=== PATIENT | male | born 1995 | race Caucasian/White ===

== ENCOUNTER 2016-08-21 07:47 | Observation (INO) | payer MEDICAID, OTHER ==
[~2016-08-21] VITALS: Ht 160 cm; Wt 57.9 kg
[2016-08-21 07:51] VITALS: BP 145/85; PULSE 69; RESP 20; TEMP 97.3
--- NOTE | 2016-08-21 08:12 | PD ---
HPI Chief Complaint: Abdominal Pain Time Seen by Provider: 08:12 Travel History International Travel<30 days: No Contact w/Intl Traveler<30days: No Traveled to known affect area: No History of Present Illness HPI 20-year-old male came to the emergency room brought by his mother with history of severe abdominal pain which initially pointed to the left lower quadrant and suprapubic. As this has been going on for past 2 days. His last meal was at 8 PM. He is not hungry right now. He is otherwise a healthy child. Vital signs were stable. Patient looked very uncomfortable. PFSH Past Medical History Narrative Medical List of his past medical history as reviewed from the nursing note. Medical History: Denies Significant Hx Immunizations Current: Yes Influenza Vaccination: No Past Surgical History Other Surgery: Yes (finger sx) Social History Alcohol Use: No Tobacco Use: No Substance Use: No Allergies-Medications (Allergen,Severity, Reaction): Coded Allergies: No Known Allergies (Unverified , 08/21/16) Comments No known drug allergies. Reported Meds & Prescriptions Reported Meds & Active Scripts Active [place] (Hydrocodone-Acetaminophen) 5-325 mg Tab 1 Tab PO Q6H PRN Narrative Medication List of his home medications reviewed from the nursing note. Review of Systems Except as stated in HPI: all other systems reviewed are Neg Physical Exam Narrative GENERAL: Awake, alert, anxious, significant distress SKIN: Warm and dry. HEAD: Atraumatic. Normocephalic. EYES: Pupils equal and round. No scleral icterus. No injection or drainage. ENT: No nasal bleeding or discharge. Mucous membranes pink and moist. NECK: Trachea midline. No JVD. CARDIOVASCULAR: Regular rate and rhythm. No murmur appreciated. RESPIRATORY: No accessory muscle use. Clear to auscultation. Breath sounds equal bilaterally. GASTROINTESTINAL: Significant pain, guarding and rebound at the McBurney's point , decreased bowel sounds. Hepatic and splenic margins not palpable. MUSCULOSKELETAL: No obvious deformities. No clubbing. No cyanosis. No edema. NEUROLOGICAL: Awake and alert. No obvious cranial nerve deficits. Motor grossly within normal limits. Normal speech. PSYCHIATRIC: Appropriate mood and affect; insight and judgment normal. Data Data Last Documented VS Vital Signs Date Time Temp Pulse Resp B/P Pulse Ox O2 Delivery O2 Flow Rate FiO2 08/21/16 09:31 16 08/21/16 08:58 75 142/87 99 Room Air 08/21/16 07:51 97.3 Orders Complete Blood Count With Diff (08/21/16 08:15) Comprehensive Metabolic Panel (08/21/16 08:15) Urinalysis - C+S If Indicated (08/21/16 08:15) Ct Abd/Pel W Iv Contrast(Rout) (08/21/16 08:15) Iv Access Insert/Monitor (08/21/16 08:15) Ecg Monitoring (08/21/16 08:15) Oximetry (08/21/16 08:15) Morphine Inj (Morphine Inj) (08/21/16 08:15) Ondansetron Inj (Zofran Inj) (08/21/16 08:15) Sodium Chlor 0.9% 1000 Ml Inj (Ns 1000 M (08/21/16 08:15) Sodium Chloride 0.9% Flush (Ns Flush) (08/21/16 08:15) Diatrizoate Liq ( Gastroview Liq) (08/21/16 08:19) Oral Contrast - Adult (08/21/16 08:43) Morphine Inj (Morphine Inj) (08/21/16 09:30) Iohexol 350 Inj (Omnipaque 350 Inj) (08/21/16 09:46) Piperacil-Tazo 3.375 Gm Premix (Zosyn 3. (08/21/16 10:30) Labs Laboratory Tests Test 08/21/16 08/21/16 08:20 09:20 White Blood Count 16.4 TH/MM3 Red Blood Count 5.00 MIL/MM3 Hemoglobin 14.9 GM/DL Hematocrit 42.6 % Mean Corpuscular Volume 85.3 FL Mean Corpuscular Hemoglobin 29.8 PG Mean Corpuscular Hemoglobin 34.9 % Concent Red Cell Distribution Width 12.7 % Platelet Count 250 TH/MM3 Mean Platelet Volume 9.1 FL Neutrophils (%) (Auto) 77.8 % Lymphocytes (%) (Auto) 14.0 % Monocytes (%) (Auto) 7.1 % Eosinophils (%) (Auto) 1.0 % Basophils (%) (Auto) 0.1 % Neutrophils # (Auto) 12.8 TH/MM3 Lymphocytes # (Auto) 2.3 TH/MM3 Monocytes # (Auto) 1.2 TH/MM3 Eosinophils # (Auto) 0.2 TH/MM3 Basophils # (Auto) 0.0 TH/MM3 CBC Comment DIFF FINAL Differential Comment Sodium Level 141 MEQ/L Potassium Level 3.7 MEQ/L Chloride Level 104 MEQ/L Carbon Dioxide Level 28.7 MEQ/L Anion Gap 8 MEQ/L Blood Urea Nitrogen 19 MG/DL Creatinine 1.00 MG/DL Estimat Glomerular Filtration 96 ML/MIN Rate Random Glucose 97 MG/DL Calcium Level 9.2 MG/DL Total Bilirubin 0.4 MG/DL Aspartate Amino Transf 15 U/L (AST/SGOT) Alanine Aminotransferase 16 U/L (ALT/SGPT) Alkaline Phosphatase 77 U/L Total Protein 7.9 GM/DL Albumin 4.5 GM/DL Urine Color LIGHT-YELLOW Urine Turbidity CLEAR Urine pH 6.5 Urine Specific [place] 1.017 Urine Protein NEG mg/dL Urine Glucose (UA) NEG mg/dL Urine Ketones NEG mg/dL Urine Occult Blood NEG Urine Nitrite NEG Urine Bilirubin NEG Urine Urobilinogen LESS THAN 2.0 MG/DL Urine Leukocyte Esterase NEG Urine RBC LESS THAN 1 /hpf Urine WBC LESS THAN 1 /hpf Microscopic Urinalysis Comment CULT NOT INDICATED MDM Medical Decision Making Medical Screen Exam Complete: Yes Emergency Medical Condition: Yes Medical Record Reviewed: Yes Differential Diagnosis Acute appendicitis, acute diverticulitis or mesenteric adenitis Narrative Course 10:50 AM blood test results were suggestive of leukocytosis. CAT scan shows appendicolith with no surrounding stranding. However clinically he is highly suspicious of acute appendicitis and I spoke with the general surgeon Dr. Catalan and let him know about my clinical opinion. He agrees and patient will be going to the ER as per him. He wanted the patient to be admitted to his service and he is coming down to see the patient shortly. Patient was given adequate pain management, IV fluid and has been kept nothing by mouth. Procedures EKG Prior to Arrival: No Physician Communication Physician Communication Dr. Catalan Diagnosis Primary Impression: Acute appendicitis Qualified Code: K35.80 - Acute appendicitis, unspecified acute appendicitis type Additional Impressions: Appendicolith Leukocytosis Qualified Code: D72.829 - Leukocytosis, unspecified type Admitting Information Admitting Physician Requests: Admit Scripts Hydrocodone-Acetaminophen ([place])5-325 mg Tab1 Tab PO Q6H PRN (PAIN) #28 TAB Ref 0 Prov:Pj Catalan MD 08/21/16 Roshan Leon MD Aug 21, 2016 08:12 Roshan Leon MD Aug 21, 2016 08:12
[2016-08-21] MEDS ORDERED: SODIUM CHLOR 0.9% 1000 ML INJ 1,000 ML IV SCH (08:15)
[2016-08-21] MEDS ORDERED: MORPHINE SULFATE 4 MG/ML INJ IV PUSH ONE ×3 (08:15→10:45)
[2016-08-21] MEDS ORDERED: ONDANSETRON HCL 4 MG/2 ML VIAL IVP ONE (08:15)
[2016-08-21] MEDS ORDERED: DIATRIZOATE MEGLUM/DIATRIZOATE SOD 9 ML CUP ONE (08:19)
[2016-08-21] MEDS: SODIUM CHLORIDE 0.9% FLUSH 5 ML FLUSH IVF PRN ×2 (08:24→09:22)
[2016-08-21 08:43] LABS: AUTOMATED NEUTROPHIL # 12.8 TH/MM3 (1.8-7.7); BASOPHIL % 0.1 % (0.0-2.0); EOSINOPHIL # 0.2 TH/MM3 (0-0.4); HEMATOCRIT 42.6 % (39.0-51.0); HEMO FLAGS DIFF FINAL; LYMPHOCYTE # 2.3 TH/MM3 (1.0-4.8); MEAN CELL VOLUME 85.3 FL (80.0-100.0); MEAN CORPUSCULAR HEMOGLOBIN 29.8 PG (27.0-34.0); MEAN CORPUSCULAR HGB CONC 34.9 % (32.0-36.0); MONO % 7.1 % (0.0-8.0); NEUT % 77.8 % (16.0-70.0); PLATELET COUNT 250 TH/MM3 (150-450); RED CELL DISTRIBUTION WIDTH 12.7 % (11.6-17.2); WHITE BLOOD COUNT 16.4 TH/MM3 (4.0-11.0)
[2016-08-21 08:53] LABS: ALT (GPT) 16 U/L (9-52); ANION GAP 8 MEQ/L (5-15); AST (GOT) 15 U/L (15-39); BICARBONATE 28.7 MEQ/L (21.0-32.0); BLOOD UREA NITROGEN 19 MG/DL (7-18); CHLORIDE 104 MEQ/L (98-107); GLOMERULAR FILTRATION RATE 96 ML/MIN (>89); POTASSIUM 3.7 MEQ/L (3.5-5.1); SODIUM (NA) 141 MEQ/L (136-145)
[2016-08-21 08:56] LABS: ALKALINE PHOSPHATASE 77 U/L (45-117); TOTAL BILIRUBIN ADULT 0.4 MG/DL (0.2-1.0)
[2016-08-21 08:58] VITALS: BP 142/87; PULSE 75; RESP 17; O2SAT 99
[2016-08-21 09:44] LABS: BLOOD, URINE NEG (NEG); GLUCOSE,URINE NEG (NEG); KETONE, URINE NEG (NEG); NITRITE,URINE NEG (NEG); PH, URINE 6.5 (5.0-8.5); URINE COLOR LIGHT-YELLOW (YELLW/STRAW)
[2016-08-21] MEDS ORDERED: IOHEXOL 350 MG/ML 10 ML VIAL (for RAD DIAG) IV ONE (09:46)
[2016-08-21 09:48] LABS: COMMENT (UR) CULT NOT INDICATED; CULTURE IF INDICATED CULT NOT INDICATED
--- NOTE | 2016-08-21 10:18 | RADRPT ---
EXAM DATE/TIME: 08/21/2016 09:42 [facility] COMPARISON: No previous studies available for comparison. INDICATIONS : Left upper quadrant pain for two days. IV CONTRAST: 64 cc Omnipaque 350 (iohexol) IV ORAL CONTRAST: Prescribed oral contrast ingested. RADIATION DOSE: 4.53 CTDIvol (mGy) MEDICAL HISTORY : None SURGICAL HISTORY : None. ENCOUNTER: Initial ACUITY: 1 day PAIN SCALE: 5/10 LOCATION: Left upper quadrant TECHNIQUE: Volumetric scanning of the abdomen and pelvis was performed. Using automated exposure control and ad justment of the mA and/or kV according to patient size, radiation dose was kept as low as reasonably achievable to obtain optimal diagnostic quality images. FINDINGS: LOWER LUNGS: The visualized lower lungs are clear. LIVER: Homogeneous density without lesion. There is no dilation of the biliary tree. No calcified gallston es. SPLEEN: Normal size without lesion. PANCREAS: Within normal limits. KIDNEYS: Normal in size and shape. There is no mass, stone or hydronephrosis. ADRENAL GLANDS: Within normal limits. VASCULAR: There is no aortic aneurysm. BOWEL/MESENTERY: The stomach, small bowel, and colon demonstrate no acute abnormality. There is no free intraperitone al air or fluid. There does appear to be a calcified appendicolith in the right lower quadrant. Howev er, no surrounding inflammatory changes are seen. ABDOMINAL WALL: Within normal limits. RETROPERITONEUM: There is no lymphadenopathy. BLADDER: No wall thickening or mass. REPRODUCTIVE: Within normal limits. INGUINAL: There is no lymphadenopathy or hernia. MUSCULOSKELETAL: Within normal limits for patient age. CONCLUSION: 1. Calcified appendicolith without surrounding inflammation. 2. Otherwise, unremarkable CT scan of the abdomen and pelvis. Kem Pringle MD on August 21, 2016 at 10:13 Board Certified Radiologist. This report was verified electronically.
[2016-08-21] MEDS ORDERED: PIPERACIL-TAZO 3.375 GM PREMIX 50 ML IV ONE (10:30)
[2016-08-21 10:37] VITALS: BP 142/84; PULSE 77; RESP 16; O2SAT 100
[2016-08-21] MEDS ORDERED: SODIUM CHLORIDE 0.9% FLUSH 5 ML FLUSH IV FLUSH PRN (10:45)
[2016-08-21] MEDS ORDERED: SODIUM CHLOR 0.9% 1000 ML INJ 1,000 ML IV ONE ×2 (10:45→13:50)
[2016-08-21] MEDS: metroNIDAZOLE 500 MG INJ 100 ML IV SCH ×2 (11:07→18:36)
[2016-08-21 12:30] VITALS: BP 146/102; PULSE 89; RESP 18; TEMP 97.4; O2SAT 98
[2016-08-21] MEDS ORDERED: HYDROmorphone HCL PF 1 MG/ML VIAL IV PUSH PRN (12:30)
[2016-08-21] MEDS ORDERED: ONDANSETRON HCL 4 MG/2 ML VIAL IV PUSH ONE ×2 (13:00→13:50)
[2016-08-21] MEDS ORDERED: PROPOFOL 200 MG/20 ML AMP IV ONE (13:50)
[2016-08-21] MEDS ORDERED: NEOSTIGMINE 3 MG/3 ML SYR IV ONE (13:50)
[2016-08-21] MEDS ORDERED: ACETAMINOPHEN 1000 MG/100 ML VIAL IV ONE ×2 (14:29→14:39)
[2016-08-21] MEDS ORDERED: MIDAZOLAM HCL 2 MG/2 ML VIAL ONE (14:39)
[2016-08-21] MEDS ORDERED: DICLOFENAC SODIUM 37.5 MG/ML VIAL IV PUSH ONE (14:39)
[2016-08-21] MEDS ORDERED: DEXAMETHASONE SOD PHOS 4 MG/ML VIAL ONE (14:39)
[2016-08-21] MEDS ORDERED: fentaNYL CITRATE 250 MCG/5 ML AMP ONE (14:39)
[2016-08-21] MEDS ORDERED: FAMOTIDINE 20 MG/2 ML VIAL ONE (14:40)
[2016-08-21] MEDS ORDERED: BUPIVACAINE/EPINEPHRINE 0.25% PF 30 ML VIAL ONE (15:31)
[2016-08-21 16:00] VITALS: BP 104/74; PULSE 80; RESP 16; TEMP 97.2; O2SAT 96
[2016-08-21] MEDS ORDERED: NORC5TAB PO (16:01)
[2016-08-21] MEDS ORDERED: DO NOT ADM ANY ANTICOAGULANT DRUGS XX PRN (16:30)
[2016-08-21] MEDS: SODIUM CHLOR 0.9% 1000 ML INJ 1,000 ML IV SCH ×2 (16:30→20:38)
[2016-08-21] MEDS ORDERED: ceFAZolin 2 GM PREMIX 50 ML IV SCH (17:00)
[2016-08-21] MEDS: ACETAMINOPHEN/HYDROcodone 325 MG/5 MG TAB PO PRN (18:30)
[2016-08-21 20:00] VITALS: BP 102/56; PULSE 72; RESP 16; TEMP 97.9; O2SAT 97
[2016-08-21] MEDS ORDERED: BENZOCAINE-MENTHOL (SUGAR FREE) 15 MG-3.6 MG LOZENGE BUCCAL PRN (20:30)
[2016-08-21] MEDS: SODIUM CHLORIDE 0.9% FLUSH 5 ML FLUSH IV FLUSH SCH (20:42)
[2016-08-22] VITALS: BP 108/54; PULSE 68; RESP 16; TEMP 97.4; O2SAT 95
[2016-08-22] MEDS: SODIUM CHLOR 0.9% 1000 ML INJ 1,000 ML IV SCH (02:31)
[2016-08-22] MEDS: metroNIDAZOLE 500 MG INJ 100 ML IV SCH (02:33)
[2016-08-22 04:00] VITALS: BP 105/50; PULSE 60; RESP 18; TEMP 97.5; O2SAT 98
[2016-08-22] MEDS: ACETAMINOPHEN/HYDROcodone 325 MG/5 MG TAB PO PRN ×2 (04:24→08:59)
--- NOTE | 2016-08-22 05:50 | MH ---
cc: BRANDIE CATALAN DATE OF ADMISSION: 08/21/2016 REASON FOR ADMISSION Acute abdominal pain. HISTORY A 20-year-old gentleman who began having pain in the umbilical area, radiating down to his right lower quadrant. It had been going on for a couple of days. She is very tender. He was seen in the emergency room where the ER physician felt clinically he had appendicitis. CT scan was done which did not show too much but a fecalith. His white count was 17,000. Call was placed to me for surgical evaluation and treatment of this patient. PAST MEDICAL HISTORY Negative for any chronic medical problems. SOCIAL HISTORY He does not use alcohol. REVIEW OF SYSTEMS No cardiac or pulmonary issues. His main complaint is abdominal pain, unrelenting, cannot get comfortable. PHYSICAL EXAMINATION GENERAL: He is awake, alert, in significant distress. He points to his right lower quadrant. He cannot move. He is lying in the position. HEAD: Atraumatic. EYES: Pupils equal, round. NECK: Supple. CHEST: Clear. HEART: Regular rate. ABDOMEN: Thin, soft, exquisite tenderness in the right lower quadrant at McBurney point. No surgical scars. No umbilical hernia. No inguinal hernia. EXTREMITIES: He moves all extremities. No clubbing, cyanosis or edema. NEUROLOGIC: He is alert and oriented. LABORATORY DATA White count of 16, H&H 14 and 42. Chemistry: Essentially normal with LFTs. Urinalysis clear. IMAGING STUDIES A fecalith in the appendix. ASSESSMENT A 20-year-old gentleman who has exquisite tenderness in the right lower quadrant. Clinically he has acute appendicitis. White count is elevated. His CT scan is not too revealing but clinically he has appendicitis. PLAN We will plan operative intervention. This was discussed with the patient and his family and they appeared to understand. Brandie Catalan MD JDB/ANGELIQUE /10:51 PM /5:45 AM
[2016-08-22 08:00] VITALS: BP 114/58; PULSE 60; RESP 18; O2SAT 98
[2016-08-22] MEDS: SODIUM CHLORIDE 0.9% FLUSH 5 ML FLUSH IV FLUSH SCH (09:00)
[2016-08-22] MEDS ORDERED: PANTOPRAZOLE SODIUM 40 MG VIAL IV SCH (09:00)
--- NOTE | 2016-08-25 09:25 | MP ---
cc: BRANDIE CATALAN DATE OF SURGERY: 08/21/2016 PREOPERATIVE DIAGNOSIS Acute appendicitis. POSTOPERATIVE DIAGNOSIS Acute appendicitis. PROCEDURE Laparoscopic appendectomy. ANESTHESIA General SURGEON Dr. Catalan. INDICATIONS FOR PROCEDURE: The patient is a pleasant 20-year-old gentleman who was found clinically to have appendicitis. Plans were made for above. PROCEDURE Placed in supine position after anesthesia his abdomen is prepped with Betadine. He is given preoperative antibiotics. Time-out was done. We make an incision above the umbilicus. Veress needle inserted, saline load test was performed, a 10 mm trocar was introduced. Cameras introduced, two other working ports placed 5 mm in the midline, one able the pubic tubercle, one in between to previously placed ports. Cameras introduced. We can see the appendix is obviously inflamed somewhat retrocecal the appendix then grasped identifying the mesentery, the gallbladder mesentery artery of the appendix is taken down, all done with harmonic scalpel until we get to the base of the appendix. Two endoties, PDS were then placed around the base of the appendix and the base of the appendix amputated which is mildly inflamed, placed in EndoCatch and passed off the field. We checked our dissection site which had excellent hemostasis. We evacuate fluid down the pelvis, the liver is smooth, the peritoneal surfaces are smooth, the gallbladder looks completely normal. After the irrigating solution removed the CO2 is removed the fascial layers closed with 0 Vicryl at the fascia at the umbilicus and skin is closed with 4-0 Vicryl. All three sites. MD NICK Dickson/sarah /10:53 PM /9:22 AM
== END 2016-08-22 12:33 | disposition home or self-care (01) ==
LOC: NEPC 07:47 → NEDA 10:31 → INTOOBSV 10:31 → HOCA 12:05
PROVIDERS: ADMIT Surgery; ATTEND Surgery
DX: K35.80 Unspecified acute appendicitis (principal)
CPT/HCPCS: 00840; 44970; 74177; 80053; 81001; 85025; 88304; 96361; 96374; 96375; 96376; 99285; C9113; G0378; J0131; J1100; J1130; J1170; J2250; J2270; J2405; J2543; J2710; J3010; J7030; Q9963; Q9967